=== PATIENT | female | born 1955 | race Caucasian/White ===

== ENCOUNTER → 2024-08-20 | Outpatient (CLI) | payer MEDICARE, SELFPAY ==
[2024-08-20 11:51] LABS: Basophils % (Auto) 1 % (0-2.5); Eosinophils # (Auto) 0.2 Thou/mm3 (0.0-0.5); Eosinophils % (Auto) 4 % (0-10); Hematocrit 43.2 % (36.0-46.0); Hemoglobin 14.4 g/dL (12.0-16.0); Immature Granulocytes % (Auto) 0 % (0-0); Immature Granulocytes Auto 0.01 Thou/mm3 (0.00-0.00); Lymphocytes # (Auto) 1.7 Thou/mm3 (1.0-4.8); Lymphocytes % (Auto) 34 % (10-50); Mean Corpuscular HGB Conc 33.3 g/dl (31.0-37.0); Mean Corpuscular Hemoglobin 28.7 pg (25.0-35.0); Mean Corpuscular Volume 86 fL (80-100); Monocytes # (Auto) 0.3 Thou/mm3 (0.0-0.8); Monocytes % (Auto) 7 % (0-12); Neutrophils # (Auto) 2.6 Thou/mm3 (1.8-7.7); Neutrophils % (Auto) 54 % (37-80); Nucleated Red Blood Cell % 0 /100 WBC (0); Platelet Count 145 Thou/mm3 (140-440); RDW Standard Deviation 42.8 fL (36.4-46.3); Red Blood Count 5.01 Miln/mm3 (4.00-5.20); White Blood Count 4.9 Thou/mm3 (3.6-11.0)
[2024-08-20 11:57] LABS: Collection Type, Urine Clean Catch
[2024-08-20 12:15] LABS: Bilirubin,Urine Negative (Negative); Blood,Urine Negative (Negative); Clarity,Urine Clear (Clear/Hazy); Color,Urine Yellow (Lt Yel-Yel); Glucose, Urine Negative (Negative); Hyaline Casts,Urine < 1 /hpf (0-1); Ketones,Urine Negative (Negative); Leukocyte Esterase,Urine Positive (Negative); Nitrite,Urine Negative (Negative); Protein,Urine Trace (Neg - Trace); RBC,Urine 6 /hpf (0-3); Specific Gravity,Urine 1.027 (1.001-1.035); Squamous Epithelial Cell,Urine 1 /hpf (0-5); Urobilinogen,Urine Negative mg/dL (0.0-1.0); WBC,Urine 9 /hpf (0-5)
[2024-08-20 12:24] LABS: Alanine Aminotransferase 33 U/L (10-49); Albumin, Serum 4.7 gm/dL (3.4-4.8); Albumin/Globulin Ratio 2.5 (1.2-2.2); Alkaline Phosphatase 57 U/L (46-116); Anion Gap 7 (7-16); Aspartate Amino Transferase 27 U/L (0-34); BUN/Creatinine Ratio 24 Ratio (12-20); Blood Urea Nitrogen 19 mg/dL (9-23); Calcium 9.3 mg/dL (8.3-10.6); Calcium (Corrected) 9.3 mg/dL (8.5-10.1); Carbon Dioxide 31.3 mMol/L (20.0-31.0); Cardiac Risk Estimate 3.8 RATIO (3.7-5.6); Chloride 102 mMol/L (98-107); Cholesterol 182 mg/dL (132-200); Creatinine (Component) 0.8 mg/dL (0.6-1.3); Free T4 (Free Thyroxine) 1.16 ng/dL (0.89-1.76); Globulin 1.9 gm/dL (2.3-3.5); Glucose 101 mg/dL (74-106); HDL Cholesterol 48 mg/dL (40-60); LDL Cholesterol,Calculated 118 mg/dL (0-130); Osmolality,Calculated 281 (275-295); Potassium 3.9 mMol/L (3.4-5.1); Sodium 140 mMol/L (136-145); Thyroid Stimulating Hormone 4.47 uIU/mL (0.55-4.78); Total Protein 6.6 gm/dL (5.7-8.2); Triglycerides 81 mg/dL (30-150); eGFR > 60 See Note
[2024-08-22 05:03] LABS: HCV RNA, PCR <15 NOT DETECTED IU/mL
[2024-08-24 06:54] LABS: HCV RNA, PCR Log IU <1.18 NOT DETECTED Log IU/mL
== END | disposition home or self-care (01) ==
LOC: COPL 10:47
PROVIDERS: PCP Family Medicine; Referring Provider Family Medicine; Visit Provider Family Medicine
DX: I10 Essential (primary) hypertension (principal); E03.9 Hypothyroidism, unspecified; B18.2 Chronic viral hepatitis C
CPT/HCPCS: 36415; 80053; 80061; 81001; 84439; 84443; 85025; 87522

== ENCOUNTER 2024-09-24 12:36 | Emergency (ER) | payer MEDICARE, SELFPAY ==
[2024-09-24 12:50] VITALS: BP 116/74; PULSE 92; RESP 18; TEMP 36.7; O2SAT 95; BMI 28.3
--- NOTE | 2024-09-24 12:57 | EDNOTE_ITS ---
Upper Respiratory Inf. RME/HPI General Chief Complaint: Dental/Oral/Throat Stated Complaint: THROAT INFECTED/SWOLLEN ; CAN'T SWALLOW Time Seen by Provider: 09/24/24 12:55 Arrival date/time: 09/24/24 12:36 69-year-old female presents to the emergency department with complaints of sore throat patient reports she saw her primary care doctor 2 days ago was started on doxycycline and she was just given a prescription for prednisone that was called in by her doctor today she reports he has not started taking the prednisone yet Limitations: no limitations Related Data Home Medications ?Medication ?Instructions ?Recorded ?Confirmed gabapentin 400 mg capsule 400 mg PO HS #0 caps 03/29/14 Previous Rx's ?Medication ?Instructions ?Recorded naratriptan 2.5 mg tablet (Amerge) 2.5 mg PO QDAY PRN HEADACHE #30 03/29/14 tabs Phenazopyridine * (PYRIDIUM *) 200 mg PO TIDPC #12 tabs 11/24/16 Phenazopyridine * (PYRIDIUM *) 200 mg PO TIDPC #6 tabs 04/20/17 albuterol sulfate 90 mcg/actuation 1 puff inhalation Q6H PRN 09/13/18 aerosol inhaler (ProAir HFA) shortness of breath #18 grams benzonatate 100 mg capsule 100 mg PO TID PRN cough #20 caps 09/13/18 (Tessaltelly Minor) azithromycin 250 mg tablet See Rx Instructions PO .COMPLEX #6 09/17/18 (Zithromax Z-Lam) tabs methylprednisolone 4 mg tablets in 4 mg PO DAILY #21 tabs 09/17/18 a dose pack (Medrol (Lam)) albuterol sulfate 2.5 mg/3 mL 2.5 mg (3 mL) inhalation QID PRN 03/19/20 (0.083 %) solution for nebulization shortness of breath or wheezing #90 mL prednisone 50 mg tablet 50 mg PO QDAY #7 tabs 03/19/20 hydrocodone 5 mg-acetaminophen 325 1 tab PO BID PRN pain #10 tabs 09/24/24 mg tablet Allergies Allergy/AdvReac Type Severity Reaction Status Date / Time erythromycin base Allergy Intermediate RASH Verified 09/24/24 12:39 levofloxacin Allergy Intermediate RASH Verified 09/24/24 12:39 morphine Allergy Intermediate VOMITING Verified 09/24/24 12:39 nitrofurantoin Allergy Intermediate RASH Verified 09/24/24 12:39 Penicillins Allergy Intermediate RASH Verified 09/24/24 12:39 Sulfa (Sulfonamide Allergy Intermediate RASH Verified 09/24/24 12:39 Antibiotics) Review of Systems Review of Systems Systems Reviewed: All systems reviewed, normal except as documented Constitutional Constitutional: Reports system reviewed and no additional complaints, except as documented, Denies fever(s) and Denies headache(s) Eyes Eyes: Reports system reviewed and no additional complaints, except as documented and Denies blurry vision ENT Ears, Nose, Mouth, and Throat: Reports system reviewed and no additional complaints, except as documented, Denies headache(s), Reports nasal congestion, Reports nasal discharge and Reports sore throat Cardiovascular Cardiovascular: Reports system reviewed and no additional complaints, except as documented, Denies chest pain and Denies dyspnea Respiratory Respiratory: Reports system reviewed and no additional complaints, except as documented, Denies chest congestion, Denies cough and Denies dyspnea Gastrointestinal Gastrointestinal: Reports system reviewed and no additional complaints, except as documented and Denies abdominal pain Integumentary/Breasts Skin/Breast: Reports system reviewed and no additional complaints, except as documented and Denies rash Neurologic Neurologic: Reports system reviewed and no additional complaints, except as documented, Reports as per HPI and Denies headache(s) Past Medical History Past Medical History CARDIAC: Negative Congestive Heart Failure RESPIRATORY: Negative Chronic Obstructive Pulmonary Disease (COPD) GENITOURINARY: Negative Renal Disease ENDOCRINE: Negative Diabetes Mellitus Type 1 or Diabetes Mellitus Type 2 Social History SMOKING STATUS: Never smoker ED Exam General Limitations: Present no limitations General appearance: Present alert and in no apparent distress Head Head exam: Present atraumatic, normocephalic and normal inspection Eye Eye exam: Present normal appearance, PERRL and EOMI ENT ENT exam: Present mucous membranes moist Expanded ENT Exam Throat exam: Present tonsillar erythema and tonsillomegaly; Absent tonsillar exudate, R peritonsillar mass, L peritonsillar mass or muffled voice Neck Neck exam: Present normal inspection, full ROM and trachea midline Chest Chest inspection: Present normal inspection and symmetric chest wall rise Respiratory Respiratory exam: Present normal lung sounds bilaterally Cardiovascular Cardiovascular exam: Present regular rate, normal rhythm and normal heart sounds Abdominal Exam Abdominal exam: Present soft and normal bowel sounds Extremities Exam Extremities exam: Present normal inspection and full ROM Back Exam Back exam: Present normal inspection and full ROM Neurological Exam Neurological exam: Present alert, oriented X3 and CN II-XII intact Psychiatric Psychiatric exam: Present normal affect and normal mood Skin Skin exam: Present warm, dry, intact and normal color Course Quality Measures none Orders Category Date Time Status Clindamycin Vial [Cleocin vial] Med 09/24/24 12:56 Discontinued 600 mg IM X1 ONE Dexamethasone Inj [Decadron Inj] Med 09/24/24 12:56 Discontinued 10 mg PO X1 ONE Ibuprofen Susp [Motrin Susp] Med 09/24/24 12:56 Discontinued 600 mg PO X1 ONE Vital Signs Vital signs: Vital Signs Temperature 98.1 F 09/24/24 12:50 Pulse Rate 92 09/24/24 12:50 Respiratory Rate 18 09/24/24 12:50 Blood Pressure 116/74 09/24/24 12:50 Pulse Oximetry (%) 95 09/24/24 12:50 Oxygen Delivery Method Room Air 09/24/24 12:50 o2 sat 95% r/a wnl Upper Respiratory Infection MDM Narrative MDM Narrative:: 69-year-old female presents to the emergency department with complaints of sore throat patient reports she saw her primary care doctor 2 days ago was started on doxycycline and she was just given a prescription for prednisone that was called in by her doctor today she reports he has not started taking the prednisone yet On exam patient is mild erythema and reports pain with swallowing I explained to the patient she can continue taking her doxycycline as well as prednisone Patient given first dose of dexamethasone here as well as clindamycin Patient has no trismus no hoarseness of voice no difficulty breathing or swallowing Patient discharged home in no distress to follow-up with primary care doctor in the next 24 to 48 hours and for any worsening symptoms to return to the ER immediately Patient data External records reviewed:: [facility] previous records Clinical information provided by:: patient Social determinants that could affect healthcare access:: none Patient has the following chronic illnesses:: see hx How is presenting disease/condition affected by chronic disease/condition?: no chronic disease Evaluation data The following diagnostics were reviewed and interpreted by me:: other (specify) (n.a ) Lab and/or radiology exams considered but not ordered:: Consider not ordered Interpretation Summary: N/A Medications / Prescriptions Medications or Prescriptions considered but not ordered:: Given Medication administrations:: Medication Administration History Discontinued Medications Clindamycin Phosphate (Clindamycin Phos Inj 150 Mg/Ml Vial 6 Ml) 600 mg IM X1 ONE Stop: 09/24/24 12:57 Last Admin: 09/24/24 13:04 Dose: 600 mg Documented By: CS Dexamethasone Sodium Phosphate (Dexamethasone Sod Phos Inj 10 Mg/Ml Vial) 10 mg PO X1 ONE Stop: 09/24/24 12:57 Last Admin: 09/24/24 13:04 Dose: 10 mg Documented By: CS Comments: po Ibuprofen (Ibuprofen Susp 100 Mg/5 Ml Udc) 600 mg PO X1 ONE Stop: 09/24/24 12:57 Last Admin: 09/24/24 13:03 Dose: 600 mg Documented By: CS Given Consultations Consultation(s) initiated? (list below): No Diagnosis Upper Respiratory Differential Diagnosis: upper respiratory infection, viral infection and pharyngitis Most likely diagnosis given after review of the tests above:: Pharyngitis Admission Indicated Admission indicated?: not indicated Admission Request Was there a request for admission?: No Disposition Plan Disposition Plan: Discharge Discharge Attestation Discharge Attestation: The patient and all family members were given an opportunity to ask questions and understood the discharge instructions. Discharge instructions specifically effects, indications for sooner follow up or return to the emergency department, and the expected course of current diagnosis. Patient condition: Stable Discharge Plan Plan Patient Disposition: HOME (Self Care) Disposition Comment: Stable Prescriptions/Referrals Prescriptions/Med Rec: New hydrocodone-acetaminophen 5-325 mg tablet 1 tab PO BID MDD 10 PRN (Reason: pain) Qty: 10 0RF No Action gabapentin 400 MG capsule 400 mg PO HS Qty: 0 naratriptan [Amerge] 2.5 MG tablet 2.5 mg PO QDAY PRN (Reason: HEADACHE) Qty: 30 0RF Phenazopyridine * (PYRIDIUM *) 200 MG tablet 200 mg PO TIDPC Qty: 12 0RF Phenazopyridine * (PYRIDIUM *) 200 MG tablet 200 mg PO TIDPC Qty: 6 0RF albuterol sulfate [ProAir HFA] 90 mcg/actuation HFA aerosol inhaler 1 puff INH Q6H PRN (Reason: shortness of breath) Qty: 18 0RF benzonatate [Tessalon Perles] 100 mg capsule 100 mg PO TID PRN (Reason: cough) Qty: 20 0RF azithromycin [Zithromax Z-Lam] 250 mg tablet See Rx Instructions .ROUTE .COMPLEX Qty: 6 0RF Rx Instructions: take 500 mg once daily for 3 days methylprednisolone [Medrol (Lam)] 4 mg tablets,dose pack 4 mg PO DAILY Qty: 21 0RF prednisone 50 mg tablet 50 mg PO QDAY Qty: 7 0RF albuterol sulfate 2.5 mg /3 mL (0.083 %) solution for nebulization 2.5 mg IH QID PRN (Reason: shortness of breath or wheezing) Qty: 90 0RF Problem List Clinical Impression: Pharyngitis Patient/Caregiver Discharge Instructions Education Materials: Self-Care for Sore Throats Additional Instructions: Continue taking medications prescribed by her PCP for worsening symptoms or concerns return to the ER immediately Print Language: Macedonian Stand Alone Forms: Billie Award Info., Patient Portal Info Letter PA/MILL SET UP Supervising Physician PA/MILL SET UP Supervising Physician: Dr. De León
[2024-09-24] MEDS: IBUPROFEN SUSP 100 MG/5 ML UDC 600 MG PO (13:03)
[2024-09-24] MEDS: CLINDAMYCIN PHOS INJ 150 MG/ML VIAL 6 ML 600 MG IM (13:04)
[2024-09-24] MEDS: DEXAMETHASONE SOD PHOS INJ 10 MG/ML VIAL PO (13:04)
== END 2024-09-24 14:41 | disposition home or self-care (01) ==
LOC: SERX 13:34
PROVIDERS: Emergency Provider Emergency Medicine; PCP Family Medicine
DX: J02.9 Acute pharyngitis, unspecified (principal)
CPT/HCPCS: 96372; 99283; J0736; J1100; A9270